=== PATIENT | male | born 1955 | race Caucasian/White ===

== ENCOUNTER 2022-10-29 15:49 | Emergency (ER) | payer OTHER, SELFPAY ==
--- NOTE | ~2022-10-29 | XR_ITS ---
EXAMINATION: [id number] INDICATION: Right chest pain TECHNIQUE: A frontal view of the chest and 3 views of the right ribs were obtained. COMPARISON: None. FINDINGS: The lungs are free of acute opacities. No pleural effusion or pneumothorax. The cardiomedia stinal silhouette is normal. No displaced rib fracture is identified. There are changes of anterior f usion procedure in the lower cervical spine. IMPRESSION: 1. No acute cardiopulmonary abnormality or evidence of displaced rib fracture. Reviewed, dictated and finalized at location A.
[2022-10-29 15:58] VITALS: BP 138/78; PULSE 66; RESP 20; TEMP 36.2; O2SAT 99
--- NOTE | 2022-10-29 16:06 | ED.FALL ---
HPI - Fall General Chief Complaint: Fall Stated Complaint: Fall Injury/Right Flank Pain Source: patient Mode of arrival: ambulatory Limitations: no limitations History of Present Illness HPI Narrative: 66 y/o male presented for c/o right rib pain for one week after fall. States he tripped over his dogs and fell into a railing landing on the ribs. Has not taken anything for pain. Pain is worse with certain movements, cough, laughing and deep breaths. Denies sob, wheezing, hemoptysis, dizziness. Smokes 1ppd. Related Data Home Medications Medication Instructions Recorded Confirmed No Home Medications 10/29/22 10/29/22 Allergies Allergy/AdvReac Type Severity Reaction Status Date / Time No Known Allergies Allergy Mild Verified 10/29/22 16:07 Review of Systems Review of Systems: CONSTITUTIONAL: Denies body aches, fever, chills, or sweats. EYES: Denies visual changes, redness, or discharge. ENT: Denies rhinorrhea, congestion, sore throat, or otalgia. CARDIOVASCULAR: Denies chest pain, palpitations, or edema. RESPIRATORY: Denies cough or dyspnea. GASTROINTESTINAL: Denies abdominal pain, nausea, vomiting, or diarrhea. GENITOURINARY: Denies dysuria or hematuria. SKIN: Denies rash, itching, or wounds. MUSCULOSKELETAL: reports right rib pain Denies back pain, joint pain, or myalgia. NEUROLOGIC: Denies headache, numbness, tingling, or weakness. PSYCH: Denies depression or anxiety. All systems reviewed & are unremarkable except as noted in HPI and below PMFSH Past Medical History Medical History No pertinent past medical history Social History Social History Smoking packs per day: 1 Smoking cigarettes per day: 20.0 Smoking status: Current every day smoker Comments At time of signature, I have reviewed and agree with nursing past medical, surgical, social and family history unless otherwise noted. Please see nursing chart for further information. There is no relevant family history pertinent to the presenting complaint Exam Narrative: GENERAL: Well-appearing, and in no acute distress. HEAD: Normocephalic, atraumatic. EYES: EOMI. No redness or drainage. Conjunctivae normal. ENT: Mucous membranes pink and moist. No rhinorrhea. NECK: Normal AROM. Supple. No lymphadenopathy. CHEST: No respiratory distress. Clear to auscultation. HEART: Regular rate and rhythm. No murmur appreciated. Normal peripheral pulses. ABDOMEN: Soft, nontender, nondistended, normal active bowel sounds. MUSCULOSKELETAL: Right lower lateral rib tenderness; no bruising or deformity, no rash EXTREMITIES: Normal range of motion. No edema. SKIN: Warm, dry, no rash. Capillary refill normal. Normal skin turgor. NEURO: No focal deficits. Alert and oriented x3. Gait steady. PSYCH: Normal affect. Course Course Emergency Course: Patient is aware of diagnosis, understands and agrees to treatment plan. Anticipatory guidance given. Patient agrees to follow-up as directed and is aware of reasons to seek care at the emergency department. Portions of this record may have been created with voice recognition software Level of Care: Express Care Visit Vital Signs Vital signs: Vital Signs Temperature 97.2 F L 10/29/22 15:58 Pulse Rate 66 10/29/22 15:58 Respiratory Rate 20 10/29/22 15:58 Blood Pressure 138/78 10/29/22 15:58 Pulse Oximetry 99 10/29/22 15:58 Oxygen Delivery Room Air 10/29/22 15:58 Temperature 97.2 F L 10/29/22 15:58 Pulse Rate 66 10/29/22 15:58 Respiratory Rate 20 10/29/22 15:58 Blood Pressure 138/78 10/29/22 15:58 Pulse Oximetry 99 10/29/22 15:58 Oxygen Delivery Room Air 10/29/22 15:58 MDM - Fall MDM Narrative Medical decision making narrative: Result of xray reviewed with pt. Discussed physical exam findings. Advised supportive measures and signs/sym
== END 2022-10-29 16:40 | disposition home or self-care (01) ==
PROVIDERS: Emergency Provider Nurse Practitioner Family; PCP Internal Medicine
DX: S20.211A Contusion of right front wall of thorax, initial encounter (principal); W01.0XXA Fall on same level from slipping, tripping and stumbling without subsequent striking against object, initial encounter; F17.210 Nicotine dependence, cigarettes, uncomplicated
CPT/HCPCS: 71101; 99213; G0463

== ENCOUNTER 2023-02-21 12:57 | Emergency (ER) | payer OTHER, SELFPAY ==
[2023-02-21 13:00] VITALS: BP 157/77; PULSE 73; RESP 16; TEMP 36.4; O2SAT 99
--- NOTE | 2023-02-21 13:11 | ED.EAR ---
HPI - Ear Problem General Chief complaint: Ear Stated complaint: Right Ear Pain Source: patient, RN notes reviewed and old records reviewed Mode of arrival: ambulatory Limitations: no limitations History of Present Illness HPI Narrative: 67-year-old male presents to [facility] with complaint right ear pain with drainage for about 1 week. Patient states now causing headache. Patient denies any other complaints of MD Complaint: ear pain and ear discharge Location: right ear Duration: constant Severity: moderate Relieving factors: NDAIDs Related Data Allergies Allergy/AdvReac Type Severity Reaction Status Date / Time No Known Allergies Allergy Mild Verified 02/21/23 13:09 Review of Systems Constitutional: Constitutional: Reports no additional constitutional complaints, Denies body ache(s), Denies chills, Denies fatigue, Denies fever(s) and Denies headache(s) Eyes: Eyes: Reports no additional eye complaints and Denies blurry vision ENT: Reports system reviewed and no additional complaints, except as documented, Reports as per HPI, Denies vertigo, Denies dizziness, Reports ear discharge, Reports otalgia, Denies facial pain, Reports headache(s), Denies nasal congestion, Denies nasal discharge, Denies sinus pain, Denies sinus pressure and Denies sore throat Cardiovascular: Cardiovascular: Reports no additional cardiovascular complaints, Denies chest pain, Denies chest pain at rest, Denies rapid heart rate and Denies dyspnea Respiratory: Respiratory: Reports no additional respiratory complaints, Denies chest congestion, Denies cough, Denies pain on inspiration, Denies pain with cough and Denies dyspnea Gastrointestinal: Gastrointestinal: Denies abdominal pain, Denies diarrhea, Denies nausea and Denies vomiting Integumentary/Breasts: Skin/Breast: Denies rash Neurologic: Reports system reviewed and no additional complaints, except as documented, Denies vertigo, Denies dizziness and Denies headache(s) Endocrine: Endocrine: Denies fatigue PMFSH Past Medical History Medical History No pertinent past medical history Social History Social History Smoking packs per day: 1 Smoking cigarettes per day: 20.0 Smoking status: Current every day smoker Comments At the time of my signature, I reviewed and agree with the nursing past medical, surgical, social, and family history. There is no relevant family history pertinent to the patient complaint. Exam Const: General: cooperative, healthy appearing, no acute distress and well nourished Nutritional Appearance: well nourished Orientation/consciousness: patient oriented x3 Limitations: no limitations HENMT: Head: normal to inspection and normocephalic Ears: mastoids normal, Abnormal EAC present erythema, edema, EAC tenderness and otic discharge purulent and TM abnormal erythematous, with loss of landmarks and retracted Face/Nose/Sinus: normal facial exam Face and sinus: normal facial exam Mouth: Yes Normal oral and palatal mucosa present, Yes oropharynx normal and Yes moist mucous membranes Throat: tonsils normal, uvula midline and no uvular edema Eyes: General: appearance normal, both eyes and all related structures Sclera: sclerae normal Pupils: Equal, round and reactive pupils present Resp: Effort & Inspection: normal respiratory effort, able to speak in complete sentences, no audible wheezes, no cough, no respiratory distress and no retractions Cardio: Rate: regular rate Skin: General skin exam: normal color and no rashes or lesions noted Neuro: General: patient oriented x3 Cranial nerves: Yes Equal, round and reactive pupils present Psych: Appearance: grossly normal Mental Status: mental status grossly normal Speech and movement: Normal speech and movement present Affect: normal affect Course Course Emergency Course: Patient is aware of diagnosis, und
== END 2023-02-21 13:25 | disposition home or self-care (01) ==
PROVIDERS: Emergency Provider Registered Nurse; PCP Internal Medicine
DX: H60.391 Other infective otitis externa, right ear (principal); H66.001 Acute suppurative otitis media without spontaneous rupture of ear drum, right ear; F17.210 Nicotine dependence, cigarettes, uncomplicated
CPT/HCPCS: 99213; G0463